=== PATIENT | female | born 1990 ===

== ENCOUNTER 2017-11-23 06:44 | Inpatient (IN) ==
[2017-11-23] MEDS ORDERED: MORPHINE 4 MG/1 ML VIAL IV STA (08:30)
[2017-11-23] MEDS ORDERED: LACTATED RINGERS 1,000 ML IV ONE ×2 (08:30→13:20)
[2017-11-23] MEDS ORDERED: cefOXitin 2,000 MG in SYRINGE 1 EACH IV ONE (09:29)
[2017-11-23] MEDS ORDERED: ACETAMINOPHEN 325 MG TABLET PO PRN (09:39)
[2017-11-23] MEDS ORDERED: ONDANSETRON 4 MG/2 ML VIAL IV PRN (09:39)
[2017-11-23] MEDS ORDERED: LACTATED RINGERS 1,000 ML IV SCH (10:00)
[2017-11-23] MEDS ORDERED: LIDOCAINE 1%/EPI INJ 20 ML VIAL ONE (11:55)
[2017-11-23] MEDS ORDERED: BUPIVACAINE MPF 0.25% /EPI 30 ML VIAL ONE (11:55)
[2017-11-23] MEDS ORDERED: DESFLURANE 1 UNIT/15 MINUTE INH ONE (13:19)
[2017-11-23] MEDS ORDERED: PROPOFOL 200 MG/20 ML VIAL IV ONE (13:19)
[2017-11-23] MEDS ORDERED: MIDAZOLAM 2 MG/2 ML VIAL ONE (13:19)
[2017-11-23] MEDS ORDERED: fentaNYL 100 MCG/2 ML VIAL ONE (13:20)
[2017-11-23] MEDS ORDERED: NEOSTIGMINE 10 MG/10 ML VIAL ONE (13:20)
[2017-11-23] MEDS ORDERED: GLYCOPYRROLATE 0.4 MG/2 ML VIAL ONE (13:20)
[2017-11-23] MEDS ORDERED: ROCURONIUM 100 MG/10 ML VIAL IV ONE (13:20)
[2017-11-23] MEDS ORDERED: ONDANSETRON 4 MG/2 ML VIAL ONE (13:20)
[2017-11-23] MEDS ORDERED: ACETAMINOPHEN 1,000 MG/100 ML VIAL IV ONE (13:20)
[2017-11-23] MEDS: MORPHINE 4 MG/1 ML VIAL IV PRN ×2 (16:11→22:32)
[2017-11-23] MEDS: cefOXitin 2,000 MG in SYRINGE 1 EACH IV SCH (17:53)
[2017-11-24] MEDS: cefOXitin 2,000 MG in SYRINGE 1 EACH IV SCH ×3 (00:50→12:48)
[2017-11-24 04:41] LABS: Basophils % 0.4 % (0.0-0.8); Eosinophils # 0.2 10*3/uL (0.0-0.87); Eosinophils % 1.9 % (0.00-10.9); Hematocrit 35.5 VOL% (35.7-47.0); Hemoglobin 11.9 GM/DL (12.0-16.0); Immature Granulocytes % 0.4 %; Immature Granulocytes Absolute 0.03 #; Lymphocytes # 2.8 10*3/uL (1.4-4.0); Lymphocytes % 34.9 % (21.3-54.2); Mean Corpuscular HGB Conc 33.5 GM/DL (32-36); Mean Corpuscular Hemoglobin 30 PG (27-34); Mean Corpuscular Volume 90.3 FL (87-102); Mean Platelet Volume 9.8 FL (9.6-12.0); Monocytes # 0.5 10*3/uL (0.11-0.8); Monocytes % 6.6 % (1.7-12.7); Neutrophils # 4.4 10*3/uL (1.4-7.4); Neutrophils % 55.8 % (38.7-73.9); Platelet Count 273 T/CUMM (130-400); Red Blood Count 3.93 MC/CUMM (3.8-5.5); Red Cell Distribution Width 12.4 % (9.3-17.3); White Blood Count 7.9 T/CUMM (4-12)
[2017-11-24 05:21] LABS: Albumin 2.8 G/DL (3.4-5.0); Bilirubin,Total 0.6 MG/DL (0.2-1.0); Calcium 8.1 MG/DL (8.5-10.1); Total Protein 7.2 G/DL (6.4-8.3)
[2017-11-24 05:22] LABS: Osmolality,Calculated 282.3 MOS/KG (273-304); Potassium 3.8 MMOL/L (3.5-5.1)
[2017-11-24] MEDS ORDERED: PANTOPRAZOLE 40 MG TABLET PO SCH (09:00)
[2017-11-24 15:54] VITALS: BP 148/85
== END 2017-11-24 14:30 | disposition home or self-care (01) | DRG 225 ==
LOC: EDUNIT# → EDBD → N.ED 06:44 → N.EDINP 09:38 → N.3E 10:45
PROVIDERS: ADMIT Surgery; ATTEND Surgery

== ENCOUNTER 2019-08-24 02:48 | Inpatient (IN) ==
[2019-08-24] MEDS ORDERED: DOCUSATE SODIUM 100 MG CAPSULE PO PRN (05:47)
[2019-08-24] MEDS ORDERED: ONDANSETRON 4 MG/2 ML VIAL IV PRN (05:47)
[2019-08-24] MEDS ORDERED: ACETAMINOPHEN 325 MG TABLET PO PRN (05:47)
[2019-08-24] MEDS ORDERED: GLUCAGON 1 MG VIAL IM PRN (05:50)
[2019-08-24] MEDS ORDERED: DEXTROSE 50% 25 GM/50 ML SYRINGE IV PRN (05:50)
[2019-08-24] MEDS: SODIUM CHLORIDE 0.9% 1,000 ML IV SCH ×2 (06:02→16:00)
[2019-08-24] MEDS: PIPERACILLIN/TAZOBACTAM 3,375 MG in SODIUM CHLORIDE 0.9% 100 ML IV SCH ×3 (06:03→22:55)
[2019-08-24 06:23] LABS: Basophils % 0.3 % (0.0-0.8); Eosinophils # 0.2 10*3/uL (0.0-0.87); Eosinophils % 1.5 % (0.00-10.9); Hematocrit 39.6 VOL% (35.7-47.0); Hemoglobin 12.8 GM/DL (12.0-16.0); Immature Granulocytes % 0.3 %; Immature Granulocytes Absolute 0.03 #; Lymphocytes # 4.1 10*3/uL (1.4-4.0); Lymphocytes % 35.2 % (21.3-54.2); Mean Corpuscular HGB Conc 32.3 GM/DL (32-36); Mean Corpuscular Volume 88.2 FL (87-102); Mean Platelet Volume 9.8 FL (9.6-12.0); Monocytes % 5.4 % (1.7-12.7); Neutrophils % 57.3 % (38.7-73.9); Platelet Count 304 T/CUMM (130-400); Red Blood Count 4.49 MC/CUMM (3.8-5.5); White Blood Count 11.8 T/CUMM (4-12)
[2019-08-24 06:57] LABS: Albumin 3.2 G/DL (3.4-5.0); Bilirubin,Total 0.6 MG/DL (0.2-1.0); Calcium 9.1 MG/DL (8.5-10.1); Osmolality,Calculated 269.5 MOS/KG (273-304); Thyroid Stimulating Hormone 1.71 uIU/ml (0.358-3.74); Total Protein 8.7 G/DL (6.4-8.3)
[2019-08-24] MEDS ORDERED: BUPIVACAINE 0.25% /EPI 10 ML VIAL ONE (08:06)
[2019-08-24] MEDS ORDERED: LIDOCAINE 1%/EPI INJ 20 ML VIAL ONE (08:06)
[2019-08-24] MEDS ORDERED: MAGNESIUM SULF RIDER 2 GM in PREMIX 1 EACH IV ONE (08:44)
[2019-08-24] MEDS ORDERED: HYDROmorphone 2 MG/1 ML VIAL ONE (08:53)
[2019-08-24] MEDS: HYDROmorphone 2 MG/1 ML VIAL IV PRN ×4 (08:55→09:10)
[2019-08-24] MEDS ORDERED: propofoL 200 MG/20 ML VIAL IV ONE (09:00)
[2019-08-24] MEDS ORDERED: MIDAZOLAM 2 MG/2 ML VIAL ONE (09:01)
[2019-08-24] MEDS ORDERED: fentaNYL 100 MCG/2 ML VIAL ONE (09:01)
[2019-08-24] MEDS ORDERED: KETAMINE 500 MG/10 ML VIAL ONE (09:01)
[2019-08-24 09:28] LABS: Risk Ratio 6.93; VLDL CHOLESTEROL 17.2 MG/DL
[2019-08-24] MEDS: INSULIN LISPRO 100 UNIT/ML SUBCUT SCH ×4 (09:42→20:29)
[2019-08-24] MEDS: MORPHINE 4 MG/1 ML VIAL IV PRN (15:59)
[2019-08-24] MEDS: VANCOMYCIN INJ 1,500 MG in SODIUM CHLORIDE 0.9% 500 ML IV SCH (17:24)
[2019-08-24] MEDS ORDERED: INSULIN GLARGINE 100 UNIT/ML SUBCUT SCH (21:00)
[2019-08-25] MEDS: VANCOMYCIN INJ 1,500 MG in SODIUM CHLORIDE 0.9% 500 ML IV SCH (03:29)
[2019-08-25] MEDS: MORPHINE 4 MG/1 ML VIAL IV PRN (05:54)
[2019-08-25 05:58] LABS: Basophils % 0.3 % (0.0-0.8); Eosinophils # 0.2 10*3/uL (0.0-0.87); Eosinophils % 1.5 % (0.00-10.9); Hemoglobin 11.4 GM/DL (12.0-16.0); Immature Granulocytes % 0.3 %; Immature Granulocytes Absolute 0.03 #; Lymphocytes # 3.2 10*3/uL (1.4-4.0); Lymphocytes % 31.9 % (21.3-54.2); Mean Corpuscular HGB Conc 32.6 GM/DL (32-36); Mean Corpuscular Volume 87.7 FL (87-102); Mean Platelet Volume 10.1 FL (9.6-12.0); Monocytes % 5.8 % (1.7-12.7); Neutrophils % 60.2 % (38.7-73.9); Platelet Count 287 T/CUMM (130-400); Red Blood Count 3.99 MC/CUMM (3.8-5.5); Red Cell Distribution Width 12.2 % (9.3-17.3); White Blood Count 10.1 T/CUMM (4-12)
[2019-08-25] MEDS: PIPERACILLIN/TAZOBACTAM 3,375 MG in SODIUM CHLORIDE 0.9% 100 ML IV SCH (05:58)
[2019-08-25 06:13] LABS: Calcium 8.4 MG/DL (8.5-10.1); Osmolality,Calculated 274.1 MOS/KG (273-304)
[2019-08-25 07:50] VITALS: BP 107/56
[2019-08-25] MEDS ORDERED: sitaGLIPtin 100 MG TABLET PO SCH (09:00)
[2019-08-25] MEDS: INSULIN LISPRO 100 UNIT/ML SUBCUT SCH (09:26)
[2019-08-25] MEDS ORDERED: SODIUM HYPOCHLORITE 0.25% IRRIG 473 ML BOTTLE TOP SCH (10:30)
[2019-08-25] MEDS: SODIUM CHLORIDE 0.9% 1,000 ML IV SCH (10:52)
[2019-08-25] MEDS ORDERED: metFORMIN 500 MG TABLET PO SCH (17:00)
== END 2019-08-25 11:32 | disposition home or self-care (01) | DRG 584 ==
LOC: N.2E 04:52 → SUATTDRO 04:52
PROVIDERS: ADMIT Internal Medicine; ATTEND Internal Medicine